=== PATIENT | male | born 1965 | race Two or more races ===

== ENCOUNTER 2023-01-09 08:17 | Outpatient (CLI) | payer OTHER | END 2023-01-09 08:21 | disposition home or self-care (01) | LOC: NUCLEAR 08:17 | PROVIDERS: ATTEND Internal Medicine | DX: I21.9 Acute myocardial infarction, unspecified (principal); I23.6 Thrombosis of atrium, auricular appendage, and ventricle as current complications following acute myocardial infarction ==